=== PATIENT | female | born 1995 | race Caucasian/White ===

== ENCOUNTER 2019-10-14 17:56 | Emergency (ER) | payer OTHER ==
[~2019-10-14] VITALS: Ht 152.4 cm; Wt 90.7 kg
[~2019-10-14 17:56] MED LIST: AMOXICILLIN 50500 MG PO; NAFTIN40 GM TOP
[2019-10-14] MEDS ORDERED: MELOXICAM7.5 MG PO (20:15)
[2019-10-14] MEDS ORDERED: TRAMADOL 50 MG50 MG PO (20:15)
[2019-10-14] MEDS ORDERED: MEDROLDOSEPACK PO (20:15)
[2019-10-14 20:21] VITALS: BP 108/87
== END 2019-10-14 20:22 | disposition home or self-care (01) ==
LOC: M.ERS 17:56
DX: M54.16 Radiculopathy, lumbar region (principal); Z98.890 Other specified postprocedural states; Z88.8 Allergy status to other drugs, medicaments and biological substances

== ENCOUNTER 2020-04-01 18:01 | Emergency (ER) | payer MEDICAID ==
[~2020-04-01] VITALS: Ht 152.4 cm; Wt 94.3 kg
[~2020-04-01 18:01] MED LIST changes: +MEDROLDOSEPACK PO; +MELOXICAM7.5 MG PO; +TRAMADOL 50 MG50 MG PO
[2020-04-01] MEDS ORDERED: NORCO 5-325 TA1 EAC1 PO (18:24)
[2020-04-01] MEDS ORDERED: FLEXERIL PO (18:24)
[2020-04-01] MEDS ORDERED: IBUPROFEN 800800 M1 PO (18:24)
[2020-04-01 18:44] VITALS: BP 129/93
== END 2020-04-01 18:45 | disposition home or self-care (01) ==
LOC: M.ERS 18:01
DX: M54.5 Low back pain (principal); I10 Essential (primary) hypertension; Z98.890 Other specified postprocedural states; Z88.8 Allergy status to other drugs, medicaments and biological substances